=== PATIENT | female | born 1975 ===

== ENCOUNTER 2019-06-26 06:29 | Outpatient (CLI) | payer OTHER, SELFPAY ==
[2019-06-26 17:06] LABS: SARS-CoV-2 RNA PCR Negative
--- NOTE | 2019-06-29 12:13 | OP_ITS ---
DATE OF PROCEDURE: 06/29/2019 PREOPERATIVE DIAGNOSIS: Requests sterilization. POSTOPERATIVE DIAGNOSIS: Requests sterilization. PROCEDURE PERFORMED: Laparoscopic bilateral tubal ligation with Falope rings. SURGEON: Cady Bingham M.D.. ANESTHESIA: General with ET tube. FINDINGS: The uterus sounds to 7 cm. The tubes, ovaries and uterus appear grossly normal. ESTIMATED BLOOD LOSS: 5 cc. PATHOLOGY: None. DESCRIPTION OF PROCEDURE: The patient was taken to the operating room, placed under anesthesia in the dorsal lithotomy position. She was prepped and draped in the usual sterile fashion. Bladder was drained with a red rubber catheter by the surgical device sales representative prior to me entering the operating room. The bivalved speculum was placed in the vagina. Cervix was grasped on the anterior lip with a tenaculum and the uterus was sounded to 7 cm. The 6 cm Nae manipulator is placed. Other vaginal instruments were removed. Attention was turned to the abdomen. A horizontal skin incision was made at the base of the umbilicus. The abdomen was tented and the Veress needle placed. Water drop test was normal. Opening patient pressure was 6 mmHg. Pneumoperitoneum was obtained to a patient pressure of 15. The Veress needle was removed. The abdomen was tented with towel clamps and the 5 mm Optiview trocar was placed. Intraabdominal placement was confirmed with the laparoscope. The patient was placed in Trendelenburg. An 8 mm skin incision was made 2 cm above the symphysis pubis in the midline. A blunt probe was used to bring the tubes into view. The ring applicator was then used to apply a ring on each tube with a good loop of tube noted in each. The picture documentation was taken. All instruments were removed. Pneumoperitoneum was reduced. Skin incisions were closed using 4-0 nylon in an interrupted fashion. Vaginal instruments were removed. The patient was awakened from anesthesia, taken to Recovery in stable condition. D I MT: Kevin
== END 2019-06-26 06:30 | disposition home or self-care (01) ==
LOC: ANHCOVIDDT 06:30
PROVIDERS: PCP Internal Medicine; Visit Provider Obstetrics & Gynecology Gynecology
DX: Z01.818 Encounter for other preprocedural examination (principal); Z11.59 Encounter for screening for other viral diseases
CPT/HCPCS: 87635; C9803; U0003

== ENCOUNTER 2019-06-29 01:22 | Day surgery (SDC) | payer OTHER, SELFPAY ==
[2019-06-24 14:55] VITALS: BMI 24.0
[2019-06-29] VITALS (8 sets, daily range): BP systolic 126–138; BP diastolic 89–97; PULSE 59–92; RESP 12–20; TEMP 36.1–36.3; O2SAT 99–100
[2019-06-29] MEDS: LACTATED RINGERS 1,000 ML 30 ML IV CONT ×2 (06:50→08:15)
--- NOTE | 2019-06-29 06:56 | WPDANESEPPF ---
Anes - Initial Pre Proc Eval Procedure: Operation Date: 06/29/19 07:30 Proposed Procedures p Laparoscopic Bilateral Tubal Ligation With Fallopian Rings - Cady Bingham MD Date/Time: 06/29/19 06:56 Surgeon: Cady Bingham MD Pre Op Diagnosis: Desires Sterilization Patient Data Age: 43 Gender: F Height: 5 ft 8 in Weight: 68.7 kg Allergies Allergy/AdvReac Type Severity Reaction Status Date / Time No Known Allergies Allergy Unverified 06/29/19 06:53 Home Medications Medication Instructions Recorded Confirmed Type calcium carbonate-vitamin D3 1 cap PO DAILY 06/24/19 06/29/19 History [Calcium 600 + D(3)] cholecalciferol (vitamin D3) 125 mcg PO Q3D 06/24/19 06/29/19 History [Vitamin D3] exemestane 25 mg PO DAILY 06/24/19 06/29/19 History fluoxetine 20 mg PO EVERY OTHER DAY 06/24/19 06/29/19 History multivitamin 1 tablet PO DAILY 06/24/19 06/29/19 History Patient hx anesthesia problems: none Family hx anesthesia problems: none [facility] Past Medical History Medical History (Updated 06/29/19 @ 06:56 by Oscar Valencia MD) Breast cancer Surgical History Surgical History (Updated 06/29/19 @ 06:56 by Oscar Valencia MD) H/O bilateral mastectomy Anes - Eval Final PreProcedure Day of Procedure 06/29/19 06:56 Patient weight: normal Heart: regular rate and rhythm Lungs: clear to auscultation Airway: Mallampati scale class II Neurological: alert and oriented Last oral intake: >/= 8 hours ASA classification: II Emergent: no Anesthetic plan: proceed Anesthesia type and monitoring: general ETT and standard monitoring Informed Consent: The patient's anesthetic plan and its attendant risks and benefits were discussed with the patient/family/POA. Questions were solicited and answers provided to the satisfaction of the patient/family/POA.
--- NOTE | 2019-06-29 07:17 | P.HP_ITS ---
History of Present Illness History of Present Illness Consent: Risks, benefits, and alternatives have been discussed and questions answered. Patient agrees to proceed with procedure. Chief complaint: Desires Sterilization Narrative: Vanessa Merlos is a 43 year old female who has completed her childbearing and want to proceed with sterilization. Risks of infection, bleeding, injury to internal organs, failure (with increased risk of ectopic ), and anesthesia reviewed. Agrees to proceed. [facility] Past Medical History Medical History (Updated 06/29/19 @ 07:21 by Cady Bingham MD) Breast cancer (normal spontaneous vaginal delivery) Vacuum extractor delivery, delivered Surgical History Surgical History (Updated 06/29/19 @ 06:56 by Oscar Valencia MD) H/O bilateral mastectomy Meds Home Medications and Allergies Home Medications Medication Instructions Recorded Confirmed Type calcium carbonate-vitamin D3 1 cap PO DAILY 06/24/19 06/29/19 History [Calcium 600 + D(3)] cholecalciferol (vitamin D3) 125 mcg PO Q3D 06/24/19 06/29/19 History [Vitamin D3] exemestane 25 mg PO DAILY 06/24/19 06/29/19 History fluoxetine 20 mg PO EVERY OTHER DAY 06/24/19 06/29/19 History multivitamin 1 tablet PO DAILY 06/24/19 06/29/19 History Allergies Allergy/AdvReac Type Severity Reaction Status Date / Time No Known Allergies Allergy Unverified 06/29/19 06:53 Vital Signs Vital Signs - 24 hr 06/29/19 06:36 Temperature 97.3 F L Pulse Rate 74 Respiratory Rate 20 Blood Pressure 126/90 Pulse Oximetry 100 Exam Const: General: healthy appearing and alert Orientation/consciousness: patient oriented x3 GI: GI Palp: Yes Soft to palpation, No Tenderness to palpation present (GI) and No Palpable mass present : External Female Exam: normal external appearance Speculum Exam - Vagina: normal appearance of the vagina and normal vaginal discharge Speculum Exam - Cervix: normal appearance of the cervix Bimanual exam- vagina & uterus: uterine size normal and consistency normal Bimanual Exam- Adnexa, other: normal adnexae and No adnexal tenderness Neuro: General: patient oriented x3 Assessment and Plan Assessment and plan (1) Encounter for sterilization: Code(s): Z30.2 - Encounter for sterilization Status: Acute Assessment and Plan: Plan to proceed with laparoscopic BTL with falope rings
[2019-06-29] MEDS: KETOROLAC 30 MG/ML VIAL (*BKC) 15 MG IV PUSH (07:58)
--- NOTE | 2019-06-29 08:17 | PM.OP ---
Procedure Note - Brief Procedure Note - Brief Date of procedure: 06/29/19 Pre-op diagnosis: Desires Sterilization Post-op diagnosis: same Procedure performed: laparoscopic BTL with falope rings Anesthesia: GETA Surgeon: Cady Bingham MD Estimated blood loss (mL): 5 Drains: No Packing: No Pathology: none sent Complications: No immediate complications Condition: stable Disposition: PACU Findings: normal appearing tubes, ovaries, and uterus
--- NOTE | 2019-06-29 09:15 | OP_ITS ---
This report was moved to the correct visit, [id number] on 06/30/2019. Original report was signed by Dr. Cady Bingham on 06/29/2019 at 1529. DATE OF PROCEDURE: 06/29/2019 PREOPERATIVE DIAGNOSIS: Requests sterilization. POSTOPERATIVE DIAGNOSIS: Requests sterilization. PROCEDURE PERFORMED: Laparoscopic bilateral tubal ligation with Falope rings. SURGEON: Cady Bingham M.D.. ANESTHESIA: General with ET tube. FINDINGS: The uterus sounds to 7 cm. The tubes, ovaries and uterus appear grossly normal. ESTIMATED BLOOD LOSS: 5 cc. PATHOLOGY: None. DESCRIPTION OF PROCEDURE: The patient was taken to the operating room, placed under anesthesia in the dorsal lithotomy position. She was prepped and draped in the usual sterile fashion. Bladder was drained with a red rubber catheter by the surgical corsetier prior to me entering the operating room. The bivalved speculum was placed in the vagina. Cervix was grasped on the anterior lip with a tenaculum and the uterus was sounded to 7 cm. The 6 cm Nae manipulator is placed. Other vaginal instruments were removed. Attention was turned to the abdomen. A horizontal skin incision was made at the base of the umbilicus. The abdomen was tented and the Veress needle placed. Water drop test was normal. Opening patient pressure was 6 mmHg. Pneumoperitoneum was obtained to a patient pressure of 15. The Veress needle was removed. The abdomen was tented with towel clamps and the 5 mm Optiview trocar was placed. Intraabdominal placement was confirmed with the laparoscope. The patient was placed in Trendelenburg. An 8 mm skin incision was made 2 cm above the symphysis pubis in the midline. A blunt probe was used to bring the tubes into view. The ring applicator was then used to apply a ring on each tube with a good loop of tube noted in each. The picture documentation was taken. All instruments were removed. Pneumoperitoneum was reduced. Skin incisions were closed using 4-0 nylon in an interrupted fashion. Vaginal instruments were removed. The patient was awakened from anesthesia, taken to Recovery in stable condition. Willis I MT: [facility] Dictated By: Cady Bingham MD 06/29/19 0915 Transcribed Date/Time: 06/29/19 1206 Signed By: Cady Bingham MD 06/29/19 1529 MTDD
--- NOTE | 2019-06-29 09:32 | SUR.PHASEII ---
0915 updated spouse on phone and given time for pickup.
[2019-06-29] MEDS: ONDANSETRON HCL ODT 4 MG TABLET PO (10:03)
== END 2019-06-29 10:20 | disposition home or self-care (01) ==
PROVIDERS: PCP Internal Medicine; Visit Provider Obstetrics & Gynecology Gynecology
PROC: (CPT 58671; principal; 2019-06-29 07:30)
DX: Z30.2 Encounter for sterilization (principal)
CPT/HCPCS: 58671; A4264; A9270; J0131; J0330; J1100; J1885; J2250; J2405; J3010; J7120

== ENCOUNTER 2023-01-21 08:19 | Day surgery (SDC) | payer OTHER, SELFPAY ==
[2022-11-30 11:39] VITALS: BMI 22.6
[2023-01-08 09:12] VITALS: BMI 22.8
[2023-01-21 09:45] VITALS: BP 118/80; PULSE 90; RESP 16; TEMP 36.8; O2SAT 100
--- NOTE | 2023-01-21 09:49 | PM.HPGS ---
History of Present Illness History of Present Illness Consent: Risks, benefits, and alternatives have been discussed and questions answered. Patient agrees to proceed with procedure. Chief complaint: Neoplasm screening Narrative: Vanessa Merlos is a 47 year old female Presents for screening colonoscopy. Patient's current weight appetite is are normal. Patient is abdominal pain. She has had no bleeding. Family history is noncontributory. Review of Systems Review of Systems: Review of Systems noncontributory. [facility] Past Medical History Medical History (Updated 01/21/23 @ 09:51 by Kang Acuna MD) Breast cancer (normal spontaneous vaginal delivery) Vacuum extractor delivery, delivered Surgical History Surgical History (Updated 06/29/19 @ 06:56 by Oscar Valencia MD) H/O bilateral mastectomy Social History Social History Living arrangements: with family Spiritual care concerns: No Meds Home Medications and Allergies Home Medications Medication Instructions Recorded Confirmed Type exemestane 25 mg tablet 25 mg PO DAILY 06/24/19 01/08/23 History multivitamin 1 tablet PO DAILY 06/24/19 01/08/23 History Zyrtec 10 mg PO DAILY 01/08/23 01/08/23 History sodium,potassium,mag sulfates 17.5 See Rx Instructions PO .COMPLEX 01/17/23 Rx gram-3.13 gram-1.6 gram oral soln #354 mL (Suprep Bowel Prep Kit) Allergies Allergy/AdvReac Type Severity Reaction Status Date / Time No Known Allergies Allergy Verified 01/21/23 09:43 Exam Narrative: Physical exam reveals patient to be alert vital signs stable. HEENT exam is unremarkable. Is anicteric. Lungs are clear to auscultation and to percussion. Heart is without murmur extra sounds. Abdomen bowel sounds are present soft nontender with no organomegaly digital external rectal exam is normal. Assessment and Plan Assessment and plan (1) Encounter for screening colonoscopy: Code(s): Z12.11 - Encounter for screening for malignant neoplasm of colon Status: Acute Assessment and Plan: Patient presents for screening colonoscopy. She appears to be at average risk further recommendations may be given after endoscopy.
--- NOTE | 2023-01-21 09:58 | WPDANESEPPF ---
Anes - Initial Pre Proc Eval Procedure: Operation Date: 01/21/23 11:00 Proposed Procedures p Screening Colonoscopy - Kang Acuna MD Date/Time: 01/21/23 09:58 Surgeon: Kang Acuna MD Pre Op Diagnosis: Neoplasm screening Patient Data Age: 47 Gender: F Height: 1.73 m Weight: 65.1 kg Last Vital Signs Temp 36.8 C 01/21/23 09:45 Pulse 90 01/21/23 09:45 Resp 16 01/21/23 09:45 BP 118/80 01/21/23 09:45 Pulse Ox 100 01/21/23 09:45 O2 Del Method Room Air 01/21/23 09:45 Allergies Allergy/AdvReac Type Severity Reaction Status Date / Time No Known Allergies Allergy Verified 01/21/23 09:43 Home Medications Medication Instructions Recorded Confirmed Type exemestane 25 mg tablet 25 mg PO DAILY 06/24/19 01/08/23 History multivitamin 1 tablet PO DAILY 06/24/19 01/08/23 History Zyrtec 10 mg PO DAILY 01/08/23 01/08/23 History sodium,potassium,mag sulfates 17.5 See Rx Instructions PO .COMPLEX 01/17/23 Rx gram-3.13 gram-1.6 gram oral soln #354 mL (Suprep Bowel Prep Kit) Patient hx anesthesia problems: none Family hx anesthesia problems: none Results Review: All pre-operative results and documents have been reviewed as part of the pre-operative evaluation. [facility] Past Medical History Medical History Breast cancer (normal spontaneous vaginal delivery) Vacuum extractor delivery, delivered Surgical History Surgical History (Updated 01/21/23 @ 09:58 by Oscar Valencia MD) H/O bilateral mastectomy History of tubal ligation Social History Social History Living arrangements: with family Spiritual care concerns: No Anes - Eval Final PreProcedure Day of Procedure 01/21/23 09:58 Patient weight: normal Heart: regular rate and rhythm Lungs: clear to auscultation Airway: Mallampati scale class II Neurological: alert and oriented Last oral intake: >/= 8 hours ASA classification: II Emergent: no Anesthetic plan: proceed Anesthesia type and monitoring: general GIVS and standard monitoring Results Review: All pre-operative results and documents have been reviewed as part of the pre-operative evaluation. Informed Consent: The patient's anesthetic plan and its attendant risks and benefits were discussed with the patient/family/POA. Questions were solicited and answers provided to the satisfaction of the patient/family/POA.
[2023-01-21] MEDS: LACTATED RINGERS 1,000 ML 150 ML IV CONT (09:59)
[2023-01-21 10:33] VITALS: BP 127/86; PULSE 93; RESP 16; O2SAT 96
[2023-01-21 10:43] VITALS: BP 128/87; PULSE 77; RESP 18; O2SAT 99
--- NOTE | 2023-01-21 10:43 | WPDANESPN ---
Anes - Prog Note Post-Op Date/Time: 01/21/23 10:43 Cardiovascular status: normal Respiratory status: normal Airway patency: baseline Mental status: baseline Post-Op hydration status: normal Vital Signs: Last Vital Signs Temp 36.8 C 01/21/23 09:45 Pulse 90 01/21/23 09:45 Resp 16 01/21/23 09:45 BP 118/80 01/21/23 09:45 Pulse Ox 100 01/21/23 09:45 O2 Del Method Room Air 01/21/23 09:45 Pain Score (VAS): 0/10 I/O: Intake & Output 01/20/23 01/21/23 01/21/23 23:59 07:59 15:59 Intake Total 300 Balance 300 Patient Feedback: Patient satisfied with anesthetic care.
== END 2023-01-21 11:15 | disposition home or self-care (01) ==
PROVIDERS: PCP Family Medicine; Visit Provider Internal Medicine Gastroenterology
PROC: 0DJD8ZZ Inspection of Lower Intestinal Tract, Via Natural or Artificial Opening Endoscopic (ICD-10-PCS; CPT 45378; principal; 2023-01-21 11:00)
DX: Z12.11 Encounter for screening for malignant neoplasm of colon (principal); K64.8 Other hemorrhoids
CPT/HCPCS: 45378